=== PATIENT | female | born 1965 | race Caucasian/White ===

== ENCOUNTER 2016-10-26 17:43 | Observation (INO) | payer BC ==
[2016-10-26] MEDS ORDERED: ASPIRIN 81 MG CHEW PO STA (18:02)
[2016-10-26] MEDS: NITROGLYCERIN SL TABS 0.4 MG TAB SUBLINGUAL STA ×2 (18:09→18:15)
--- NOTE | 2016-10-26 18:13 | ED ---
Chest Pain HPI - General Chief Complaint: Chest Pain Stated Complaint: CHEST PAIN, BETWEEN SHOULDER BLADES Time Seen by Provider: 10/26/16 17:58 Source: patient, RN notes reviewed Mode of arrival: wheelchair Limitations: no limitations - History of Present Illness Initial Comments: 51-year-old female presents emergency Department with chief complaint of chest pain. Patient states started approximately 24 hours ago. Patient states that she has centralize chest pressure and states that she has pain in between her shoulder blades. Patient states nothing seems to make it feel better or worse at this time. She states it does wax and wane. Patient admits to some intermittent shortness of breath associated with it. Patient denies any pleuritic chest pain or orthopnea. Patient states that she has no known cardiac issues in denies hypertension, hyperlipidemia, diabetes, smoking history she states she does have family history of CVAs and states that her sister takes multiple medications for heart conditions. Patient denies any headache or dizziness. Patient denies any nausea vomiting, diaphoretic episodes. Patient states she believes she has stress test many years ago but is uncertain. - Related Data Home Medications Medication Instructions Recorded Confirmed Albuterol Inhaler [Ventolin Hfa 2 puff INHALATION RT-Q6H PRN 10/26/16 10/26/16 Inhaler] Allergies Allergy/AdvReac Type Severity Reaction Status Date / Time No Known Allergies Allergy Verified 10/26/16 18:32 Review of Systems ROS Statement: Those systems with pertinent positive or pertinent negative responses have been documented in the HPI. ROS Other: All systems not noted in ROS Statement are negative. EKG Findings - EKG Comments: EKG Findings:: EKG performed at 18:17 normal sinus rhythm with left bundle branch block rate of 78. 182 QRS duration 138, QT/QTC 434/494 Past Medical History Past Medical History: Asthma History of Any Multi-Drug Resistant Organisms: None Reported Past Surgical History: Cholecystectomy Past Psychological History: No Psychological Hx Reported Smoking Status: Never smoker Past Alcohol Use History: Occasional Past Drug Use History: None Reported General Exam Limitations: no limitations General appearance: alert, in no apparent distress Head exam: Present: atraumatic, normocephalic, normal inspection Respiratory exam: Present: normal lung sounds bilaterally. Absent: respiratory distress, wheezes, rales, rhonchi, stridor Cardiovascular Exam: Present: regular rate, normal rhythm, normal heart sounds. Absent: systolic murmur, diastolic murmur, rubs, gallop, clicks GI/Abdominal exam: Present: soft, normal bowel sounds. Absent: distended, tenderness, guarding, rebound, rigid Neurological exam: Present: alert, oriented X3, CN II-XII intact Skin exam: Present: warm, dry, intact, normal color. Absent: rash Course Vital Signs 10/26/16 10/26/16 10/26/16 17:49 18:08 18:13 Temperature 98.4 F Pulse Rate 80 Pulse Rate [ 76 88 Final Inspector Motorcyles ] Respiratory 20 Rate Blood Pressure 170/91 Blood Pressure 156/69 160/83 [Right Arm] O2 Sat by Pulse 98 96 Oximetry 10/26/16 18:25 Temperature Pulse Rate Pulse Rate [ 76 Final Inspector Motorcyles ] Respiratory Rate Blood Pressure Blood Pressure 157/92 [Right Arm] O2 Sat by Pulse 97 Oximetry Chest Pain MDM - MDM 51-year-old female presented for chest pain. Patient's d-dimer is negative there is no evidence of PE. Patient's chest x-ray within normals. Patient's EKG does show left bundle desiree block with no known history. Patient states that she got relief of her pain with her nitro. Patient be admitted at this time on heparin for cardiac evaluation. Disposition Clinical Impression: Unstable angina Disposition: ADMITTED IP TO THIS [facility] Condition: Stable
[2016-10-26 18:47] LABS: Basophils % (A) 0 %; CH 30.7; CHCM 35.3; Eosinophils # (A) 0.1 k/uL (0-0.7); Eosinophils % (A) 1 %; HCT 38.3 % (34.0-46.0); HDW 2.76; HGB 13.3 gm/dL (11.4-16.0); Luc % (Auto) 2; Lymphocytes # (A) 1.8 k/uL (1.0-4.8); Lymphocytes % (A) 18 %; MCH 30.3 pg (25.0-35.0); MCHC 34.7 g/dL (31.0-37.0); MCV 87.3 fL (80.0-100.0); Mean Platelet Volume 6.5; Monocytes # (A) 0.5 k/uL (0-1.0); Monocytes % (A) 5 %; Neutrophils # (A) 7.8 k/uL (1.3-7.7); Neutrophils % (A) 75 %; RBC 4.38 m/uL (3.80-5.40); WBC 10.5 k/uL (3.8-10.6); WBC (Perox) 10.74
[2016-10-26 19:06] LABS: ALT 37 U/L (9-52); AST 19 U/L (14-36); Alkaline Phosphatase 115 U/L (38-126); Anion Gap 10 mmol/L; Blood Urea Nitrogen 17 mg/dL (7-17); Carbon Dioxide 25 mmol/L (22-30); Chloride 105 mmol/L (98-107); Glucose 89 mg/dL (74-99); Non-African American GFR(MDRD) >60 (>60 ml/min/1.73 sqM); Potassium 4.5 mmol/L (3.5-5.1); Sodium 140 mmol/L (137-145); Total Bilirubin 0.5 mg/dL (0.2-1.3); Total Protein 7.2 g/dL (6.3-8.2)
[2016-10-26 19:07] LABS: Prothrombin Time 9.8 sec (9.0-12.0)
[2016-10-26 19:21] LABS: Creatine Kinase MB 1.2 ng/mL (0.0-2.4); Troponin I <0.012 ng/mL (0.000-0.034)
[2016-10-26 19:30] LABS: Creatine Kinase 166 U/L (30-135)
[2016-10-26 19:31] LABS: Partial Thromboplastin Time 21.7 sec (22.0-30.0)
--- NOTE | 2016-10-26 19:39 | XR ---
EXAMINATION TYPE: XR chest 2V DATE OF EXAM: 10/26/2016 7:01 PM COMPARISON: NONE HISTORY: Pain TECHNIQUE: Frontal and lateral views of the chest are obtained. FINDINGS: There is no focal air space opacity, pleural effusion, or pneumothorax seen. The cardiac silhouette size is within normal limits. The osseous structures are intact. IMPRESSION: No acute cardiopulmonary process.
[2016-10-26] MEDS ORDERED: NITROGLYCERIN SL TABS 0.4 MG TAB SUBLINGUAL PRN (20:08)
[2016-10-26] MEDS ORDERED: ALPRAZolam 0.25 MG TAB PO PRN (20:08)
[2016-10-26] MEDS ORDERED: HEPARIN SODIUM,PORCINE 5,000 UNIT/ML 1 ML VIAL IV ONE (20:08)
[2016-10-26] MEDS: HEPARIN SODIUM,PORCINE/D5W PMX 25,000 UNIT in DEXTROSE/WATER 1 500ML.BAG IV SCH (20:33)
[2016-10-26] MEDS ORDERED: ACETAMINOPHEN TAB 500 MG TAB PO STA (22:57)
[2016-10-27 01:13] LABS: Creatine Kinase 157 U/L (30-135)
[2016-10-27 01:24] LABS: Creatine Kinase MB 1.2 ng/mL (0.0-2.4)
[2016-10-27 01:27] LABS: Troponin I <0.012 ng/mL (0.000-0.034)
[2016-10-27 07:22] LABS: Cholesterol 121 mg/dL (<200); HDL Cholesterol 34 mg/dL (40-60); Triglycerides 135 mg/dL (<150)
[2016-10-27 07:41] LABS: Creatine Kinase 111 U/L (30-135)
[2016-10-27 07:54] LABS: Creatine Kinase MB 0.8 ng/mL (0.0-2.4); Troponin I <0.012 ng/mL (0.000-0.034)
[2016-10-27] MEDS: ASPIRIN 325 MG TAB PO SCH (09:02)
--- NOTE | 2016-10-27 09:58 | ECHOF ---
Referral Reason:Chest pain MEASUREMENTS -------- HEIGHT: 165.1 cm WEIGHT: 70.3 kg BP: 138/75 RVIDd: 2.7 cm (< 3.3) IVSd: 1.0 cm (0.6 - 1.1) LVIDd: 4.0 cm (3.9 - 5.3) LVPWd: 1.0 cm (0.6 - 1.1) IVSs: 1.4 cm LVIDs: 3.1 cm LVPWs: 1.7 cm LA Diam: 3.5 cm (2.7 - 3.8) LAESV Index (A-L): 25.52 ml/m Ao Diam: 2.1 cm (2.0 - 3.7) AV Cusp: 1.2 cm (1.5 - 2.6) LA Diam: 2.9 cm (2.7 - 3.8) MV EXCURSION: 9.870 mm (> 18.000) MV EF SLOPE: 67 mm/s (70 - 150) EPSS: 0.6 cm MV E Ankit: 1.01 m/s MV DecT: 272 ms MV A Ankit: 0.97 m/s MV E/A Ratio: 1.04 RAP: 5.00 mmHg RVSP: 17.37 mmHg FINDINGS -------- Sinus rhythm. This was a technically good study. Left ventricular wall thickness is normal. Overall left ventricular systolic function is normal with, an EF between 55 - 60 %. The right ventricle is normal in size. Normal LA size by volume 22+/-6 ml/m2. The right atrium is normal in size. The aortic valve is trileaflet and appears structurally normal. The mitral valve leaflets are mildly thickened. Mild mitral annular calcification present. Mild mitral regurgitation is present. Mild tricuspid regurgitation present. Right ventricular systolic pressure is normal at < 35 mmHg. Pulmonic valve appears structurally normal. The aortic root size is normal. Normal inferior vena cava with normal inspiratory collapse consistent with estimated right atrial pressure of 5 mmHg. There is no pericardial effusion. CONCLUSIONS -------- 1. Sinus rhythm. 2. Mild mitral annular calcification present. 3. Mild mitral regurgitation is present. 4. Mild tricuspid regurgitation present. 5. Right ventricular systolic pressure is normal at < 35 mmHg. 6. Pulmonic valve appears structurally normal. 7. The aortic root size is normal. 8. There is no pericardial effusion. 9. This was a technically good study. 10. Left ventricular wall thickness is normal. 11. Overall left ventricular systolic function is normal with, an EF between 55 - 60 %. 12. The right ventricle is normal in size. 13. Normal LA size by volume 22+/-6 ml/m2. 14. The right atrium is normal in size. 15. The aortic valve is trileaflet and appears structurally normal. 16. The mitral valve leaflets are mildly thickened. ELECTRIC SYSTEM OPERATOR: Arianne Ovalles RDCS
[2016-10-27] MEDS ORDERED: HEPARIN SODIUM,PORCINE 5,000 UNIT/ML 1 ML VIAL IV ONE (11:42)
[2016-10-27] MEDS ORDERED: ALBUTEROL NEBULIZED 2.5 MG/3 ML INHALATION PRN (16:53)
--- NOTE | 2016-10-27 17:29 | HP ---
DATE OF ADMISSION: 10/26/2016 HISTORY AND PHYSICAL EXAMINATION/DISCHARGE SUMMARY: The patient is a pleasant 51 -year-old female came in with complaints of chest pain, started ( ) in nature, chest pain is in the anterior part of the chest radiating to the bilateral shoulder blade area. The patient does not have a ( ). The patient chest pain is not associated with lightheadedness. Denied any shortness of breath associated with that. Denied any diaphoresis. Chest pain lasted for hours. ( ) 5/10 in severity. Wax and wane. Patient chest pain is nonpleuritic in nature. No ( )shortness of breath, orthopnea, PND, no shortness of breath, orthopnea or PND. The patient denied any significant cardiac issues including hypertension, hyperlipidemia, diabetes mellitus. Denied any smoking history. FAMILY HISTORY: Significant for CVA ( ) premature coronary artery disease. The patient denied any lightheadedness and the patient has history of asthma. The patient chest pain is not associated with food. REVIEW OF SYSTEMS: CONSTITUTIONAL: No fever, no malaise, no fatigue. HEENT: No recent visual problems or hearing problems. Denied any sore throat. CARDIOVASCULAR: As described in history of present illness. PULMONARY: No shortness of breath, no cough, no hemoptysis. GASTROINTESTINAL: No diarrhea, no nausea, no vomiting, no abdominal pain. Normoactive bowel sounds. NEUROLOGICAL: No headaches, no weakness, no numbness. HEMATOLOGICAL: Denies any bleeding or petechiae. GENITOURINARY: Denies any burning micturition, frequency, or urgency. MUSCULOSKELETAL/RHEUMATOLOGICAL: Denies any joint pain, swelling, or any muscle pain. ENDOCRINE: Denies any polyuria or polydipsia. The rest of the 14 point review of systems is negative. HOME MEDICATIONS: Albuterol. ALLERGIES: No known drug allergies. PAST MEDICAL HISTORY: Significant for asthma. SURGICAL HISTORY: Cholecystectomy. SOCIAL HISTORY: Denied any smoking, alcohol abuse or any drug abuse. Family history as mentioned in the HPI. PHYSICAL EXAMINATION: VITAL SIGNS: Temperature 98.4, pulse 70, respiratory rate of 20, blood pressure 156/69, saturating at 93% on room air. GENERAL: The patient is alert and oriented x3, not in any acute distress. Well developed, well nourished. HEENT: Pupils are round and equally reacting to light. EOMI. No scleral icterus. No conjunctival pallor. Normocephalic, atraumatic. No pharyngeal erythema. No thyromegaly. CARDIOVASCULAR: S1 and S2 present. No murmurs, rubs, or gallops. PULMONARY: Chest is clear to auscultation, no wheezing or crackles. ABDOMEN: Soft, nontender, nondistended, normoactive bowel sounds. No palpable organomegaly. MUSCULOSKELETAL: No joint swelling or deformity. EXTREMITIES: No cyanosis, clubbing, or pedal edema. NEUROLOGICAL: Gross neurological examination did not reveal any focal deficits. SKIN: No rashes. LABORATORY DATA : CBC, CMP, essentially within normal limits. Chest x-ray did not show any acute abnormality. Patient d-dimer is negative. Two sets of Troponins are negative. EKG showed left bundle branch block. Unsure if this is new or old. Although the patient has an echocardiogram, which is essentially within normal limits without any wall motion abnormality. We will try and get EKG from Dr. Mitchell's office, if there is any previous EKG's which is showing left bundle branch block. Although the patient does not have any troponin elevation. ASSESSMENT AND PLAN: 1. Chest pain appears to be atypical in nature, unsure of the exact etiology of chest. The patient is admitted to the hospital. We will rule out acute unstable angina. Rule out unstable angina or any other acute coronary syndrome. Cardiology was consulted. EKG as mentioned above with normal echocardiogram findings. I will leave further management either stress test or any further intervention as per cardiology. If cardiology clears her then patient will be discharged today. 2. Asthma without any acute exacerbation. 3. Left bundle branch block on the EKG. Management as mentioned above. New onset left bundle branch block is considered as acute myocardial infarction. This dictation is both H&P and discharge summary. If cardiology clears, the patient will be discharged. Discharge with probable outpatient stress test. Patient does not have any risk factors of coronary artery disease.
[2016-10-28] MEDS: HEPARIN SODIUM,PORCINE/D5W PMX 25,000 UNIT in DEXTROSE/WATER 1 500ML.BAG IV SCH ×2 (00:42→02:18)
[2016-10-28 08:05] VITALS: RESP 16
[2016-10-28 12:00] VITALS: BP 147/77; PULSE 75; TEMP 98.2
[2016-10-28] MEDS ORDERED: LOSARTAN 25 MG TAB PO SCH (12:30)
[2016-10-28] MEDS: ASPIRIN 325 MG TAB PO SCH (12:39)
--- NOTE | 2016-10-28 13:23 | CONS ---
DATE OF CONSULTATION: This is a 51-year-old female who started experiencing chest discomfort on and this pain went through to the back. It lasted for about an hour and then it subsided. 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 The pain was continuous and relentless and therefore she came to the hospital on Sunday evening around 6:00. Her first 12-lead ECG shows sinus rhythm with a left bundle branch block morphology, a QRS width of 136 ms. This is a new finding from 2009. I have a stress test from 2009, which states that her QRS was 80 ms at that time. Now it is 136 ms. Since then she has had 2 sets of cardiac enzymes, which have been normal. Hemoglobin is normal. Electrolytes are normal. Kidney function is normal. Lipid panel is as follows: Triglycerides 135, total cholesterol 121, LDL 60 HDL 34. REVIEW OF SYSTEMS: No fever, chills or rigors. No cough or expectoration. No nausea, vomiting, or diarrhea. No hematuria or dysuria. No strokes or seizures. No skin lesions or musculoskeletal complaints. ALLERGIES: No known drug allergies. MEDICATIONS: None. PAST HISTORY: She has a history of elevated blood pressure. Three months ago she went to Dr. Mitchell's office, her blood pressure was elevated and it has been elevated in the last couple days as well as on admission and throughout this hospitalization. No diabetes. No family history of premature coronary disease, but a family history of hypertension, heart failure and strokes. Her mother had all 3. Her sister has hypertension and is on medical treatment for this. On examination, blood pressure is 147/77 mmHg, pulse rate is in the 70s. She is afebrile at 98.2 Fahrenheit. Head and neck examination is normal. Heart sounds are normal S1, normal S2. Breath sounds are normal. No rhonchi. No crackles. Abdomen is soft, nontender. Extremities are warm. No edema. IMPRESSION: 1. Hypertension. 2. Normal potassium. 3. Left bundle branch block with a QRS width of 136 ms. 4. Patient admitted with recurrent chest discomfort. No evidence for acute myocardial infarction. SUGGEST: Hypertension management. Once blood pressure is controlled, stress testing. Since she has a left bundle branch block at baseline, I would order an exercise Cardiolite stress test. Please noted that 2-D echo shows normal LV size and systolic function. PLAN: Outpatient exercise Cardiolite stress test for evaluation of recurrent chest discomfort, hypertension, left bundle branch block on 12-lead ECG, (abnormal ECG at baseline). I will see her thereafter.
--- NOTE | 2016-10-29 10:45 | DS ---
DATE OF ADMISSION: 10/26/2016 DATE OF DISCHARGE: 10/28/2016 HOSPITAL COURSE: Ms. Najera is a 51-year-old female with a past medical history of asthma, coming into the hospital with a chief complaint of chest pain. Patient has chest pain which is radiating to her bilateral shoulder plate but it was not associated with any difficulty in breathing or lightheadedness or dizziness. But there is family history of premature coronary artery disease, so the patient was started on heparin drip and cardiology has been consulted. Patient did get an echocardiogram that was within normal limits. Cardiology has seen her and advised that she get a stress test as outpatient which has been scheduled. The patient is being discharged home in stable condition. Consults obtained: Cardiology. Procedures done: Echocardiogram showing ejection fraction 55 to 60%. DISCHARGE DIAGNOSIS(ES): 1. Atypical chest pain. 2. Asthma. 3. Left bundle branch block on EKG. Patient's discharge medications: 1. Albuterol 2 puffs q.6 hours p.r.n. for shortness of breath. 2. Cozaar 25 mg p.o. daily. FOLLOW-UP: Patient is advised to get a stress test that has already been scheduled for Sunday. Diet: Cardiac diet and activity as tolerated. The patient is advised to follow up with her primary care physician within one weeks' of time. Patient is being discharged home in stable condition with her family members.
== END 2016-10-28 13:48 | disposition home or self-care (01) ==
LOC: EC 17:43 → 3OBS 20:08
PROVIDERS: ADMIT Internal Medicine; ATTEND Internal Medicine
DX: R07.89 Other chest pain (principal); J45.909 Unspecified asthma, uncomplicated; I44.7 Left bundle-branch block, unspecified; I10 Essential (primary) hypertension; Z82.49 Family history of ischemic heart disease and other diseases of the circulatory system; Z82.3 Family history of stroke
CPT/HCPCS: 99285 ×2; 96365 ×2; 96366 ×18; 96376 ×4; 36415; 93005 ×2; 93306; 85379; 80061; 80053; 82550 ×2; 82553 ×2; 83735; 84484 ×2; 85025; 85610; 85730 ×3; 71020; G0378 ×3; J1644 ×4

== ENCOUNTER 2019-02-26 17:20 | Emergency (ER) | payer BC, OTHER ==
[2019-02-26 17:29] VITALS: RESP 16; TEMP 97
[2019-02-26] MEDS ORDERED: IBUPROFEN 600 MG TAB PO STA (20:16)
--- NOTE | 2019-02-26 20:21 | ED ---
General Adult HPI - General Chief complaint: Extremity Injury, Lower Stated complaint: RT LEG INJURY Time Seen by Provider: 02/26/19 19:50 Source: patient, RN notes reviewed Mode of arrival: ambulatory Limitations: no limitations - History of Present Illness Initial comments: 53-year-old female presents to the emergency department for [facility] leg pain. Patient states that earlier today she was walking through her house when she tripped over an object on the floor and injured her right ankle and posterior right lower leg pain. She states the pain is mostly in the posterior right ankle that radiates up into the right calf. Patient denies hyperextending or dislocating her knee. Denies any significant knee pain. Denies hitting her head or any other injuries. Denies any hip or back pain.Patient has no other complaints at this time including shortness of breath, chest pain, abdominal pain, nausea or vomiting, headache, or visual changes. - Related Data Home Medications Medication Instructions Recorded Confirmed Albuterol Inhaler [Ventolin Hfa 2 puff INHALATION RT-Q6H PRN 10/26/16 10/26/16 Inhaler] Losartan [Cozaar] 25 mg PO DAILY 10/28/16 10/28/16 Allergies Allergy/AdvReac Type Severity Reaction Status Date / Time No Known Allergies Allergy Verified 02/26/19 17:29 Review of Systems ROS Statement: Those systems with pertinent positive or pertinent negative responses have been documented in the HPI. ROS Other: All systems not noted in ROS Statement are negative. Past Medical History Past Medical History: Asthma, Hypertension History of Any Multi-Drug Resistant Organisms: None Reported Past Surgical History: Cholecystectomy, Orthopedic Surgery Additional Past Surgical History / Comment(s): Left arm fracture with surgical repair, colonoscopy-normal Past Anesthesia/Blood Transfusion Reactions: No Reported Reaction Additional Past Anesthesia/Blood Transfusion Reaction / Comment(s): Pt states she thinks she received blood in the past. Past Psychological History: No Psychological Hx Reported Smoking Status: Never smoker Past Alcohol Use History: None Reported Past Drug Use History: None Reported - Past Family History Father Family Medical History: Dementia, Renal Disease Mother Family Medical History: Renal Disease Additional Family Medical History / Comment(s): Mother had "heart problems". She at the age of 62 yrs. General Exam Limitations: no limitations General appearance: alert, in no apparent distress Head exam: Present: atraumatic, normocephalic, normal inspection Eye exam: Present: normal appearance. Absent: PERRL, EOMI, scleral icterus, conjunctival injection ENT exam: Present: normal exam, mucous membranes moist Neck exam: Present: normal inspection, full ROM. Absent: tenderness, meningismus, lymphadenopathy Respiratory exam: Present: normal lung sounds bilaterally. Absent: respiratory distress, wheezes, rales, rhonchi, stridor Cardiovascular Exam: Present: regular rate, normal rhythm, normal heart sounds. Absent: systolic murmur, diastolic murmur, rubs, gallop, clicks Extremities exam: Present: normal inspection, tenderness (Mild tenderness noted to the right posterior foot and ankle along the heel. Normal Palma test.), normal capillary refill (Refill less than 2 seconds, DP pulse 2+), calf tenderness (Minimal lower calf tenderness, no erythema or edema. No increased warmth.). Absent: full ROM (Patient has some limited dorsiflexion of the right foot but is able to dorsiflex about 10), pedal edema, joint swelling Back exam: Absent: vertebral tenderness Neurological exam: Present: alert, oriented X3, CN II-XII intact Psychiatric exam: Present: normal affect, normal mood Course Vital Signs 02/26/19 17:26 Temperature 97.0 F L Pulse Rate 69 Respiratory 16 Rate Blood Pressure 121/76 O2 Sat by Pulse 98 Oximetry Medical Decision Making - Medical Decision Making 53-year-old female presents for right leg pain. This happened after she tripped over an object on the floor. Patient states it is her posterior ankle as well as distal right calf. Patient does have intact Palma's sign. DP pulse 2+, neurovascularly intact. She is able to ambulate. X-ray shows no fracture of the right foot. X-ray tib-fib shows no acute process. Discussed muscle strain versus ankle sprain. Patient will be put in a stirrup splint. Will follow up with orthopedics. Will return here if she has any worsening symptoms. Disposition Clinical Impression: Ankle injury Disposition: HOME SELF-CARE Condition: Good Instructions (If sedation given, give patient instructions): Ankle Sprain (ED) Additional Instructions: Please follow up with primary care and orthopedics in 1-2 days. Take Motrin and Tylenol for pain. Use crutches as necessary. Please return here to the emergency department if you have any worsening symptoms. Is patient prescribed a controlled substance at d/c from ED?: No Referrals: Beverley Mitchell MD [Primary Care Provider] - 1-2 days Jesu House MD [STAFF PHYSICIAN] - 1-2 days Time of Disposition: 21:45
--- NOTE | 2019-02-26 21:29 | XR ---
PROCEDURE: XR tibia fibula RT - 2V DATE AND TIME: 02/26/2019 8:33 PM CLINICAL INDICATION: PHH; Pain TECHNIQUE: Department protocol COMPARISON: None FINDINGS: There is no fracture or malalignment. The soft tissues are unremarkable. IMPRESSION: NO ACUTE PROCESS.
--- NOTE | 2019-02-26 21:31 | XR ---
PROCEDURE: XR foot complete RT - 3V DATE AND TIME: 02/26/2019 8:34 PM CLINICAL INDICATION: PHH; Pain TECHNIQUE: Department protocol COMPARISON: None FINDINGS: There is no fracture or malalignment. The soft tissues are unremarkable. IMPRESSION: NO ACUTE PROCESS.
[2019-02-26 21:52] VITALS: BP 117/69; PULSE 67
== END 2019-02-26 21:55 | disposition home or self-care (01) ==
LOC: EC 17:20
DX: S99.911A Unspecified injury of right ankle, initial encounter (principal); M79.661 Pain in right lower leg; J45.909 Unspecified asthma, uncomplicated; I10 Essential (primary) hypertension; Z87.81 Personal history of (healed) traumatic fracture; Z90.49 Acquired absence of other specified parts of digestive tract; Z98.890 Other specified postprocedural states; Z79.899 Other long term (current) drug therapy; W01.0XXA Fall on same level from slipping, tripping and stumbling without subsequent striking against object, initial encounter; Y92.69 Other specified industrial and construction area as the place of occurrence of the external cause; Y99.0 Civilian activity done for income or pay; Y93.01 Activity, walking, marching and hiking
CPT/HCPCS: 99283

== ENCOUNTER → 2019-03-19 | Outpatient (CLI) | payer OTHER ==
--- NOTE | 2019-03-19 09:40 | XR ---
EXAMINATION TYPE: XR ankle complete RT DATE OF EXAM: 03/19/2019 COMPARISON: NONE HISTORY: 53-year-old female sprain of the spinous ligament of right ankle, trip and fall injury with pain TECHNIQUE: 3 views FINDINGS: Ankle mortise is congruent with preservation of the distal tibiofibular overlap. Talar dome is intact . Subtalar joint appears aligned. A small plantar calcaneal spur. Small delineation to the Achilles t endon. IMPRESSION: No acute osseous abnormality seen.
== END | disposition home or self-care (01) ==
LOC: RADXRMAIN 09:06
PROVIDERS: ATTEND Emergency Medicine
DX: S93.401D Sprain of unspecified ligament of right ankle, subsequent encounter (principal)

== ENCOUNTER → 2019-04-22 | Outpatient (CLI) | payer BC ==
--- NOTE | 2019-04-22 12:49 | XR ---
KUB HISTORY: N 20.1, left ureteral stone Frontal KUB and 2 images No comparisons Surgical clips are present in the right upper and lower quadrant. No evident pneumoperitoneum or erwin l obstruction. Bone mineralization is maintained. Question 2 to 3 mm calcifications overlying the kid neys. Overlying bowel gas may obscure detail. IMPRESSION: Possible nephrolithiasis.
== END | disposition home or self-care (01) ==
LOC: RADXRMAIN 08:47
PROVIDERS: ATTEND Urology
DX: N20.1 Calculus of ureter (principal)
CPT/HCPCS: 74018

== ENCOUNTER → 2019-05-15 | Outpatient (CLI) | payer BC ==
--- NOTE | 2019-05-16 11:35 | MM ---
Reason for exam: screening (asymptomatic). Last mammogram was performed 13 years ago. History: Patient is postmenopausal. Family history of breast cancer in maternal cousin at age 30. Took hormonal contraceptives for 5 years beginning at age 17. Took unspecified hormones for 3 years beginning at age 27. Physical Findings: A clinical breast exam by your physician is recommended on an annual basis and results should be correlated with mammographic findings. MG Screening Mammo w CAD Bilateral CC and MLO view(s) were taken. Prior study comparison: May 04, 2006, CAD bilateral diagnostic mammogram. May 18, 2004, bilateral screening mammogram. The breast tissue is heterogeneously dense. This may lower the sensitivity of mammography. Left biopsy marker present. These results were verbally communicated with the patient and result sheet given to the patient on 05/15/19. ASSESSMENT: Negative, BI-RAD 1 RECOMMENDATION: Routine screening mammogram of both breasts in 1 year.
== END | disposition home or self-care (01) ==
LOC: RADMAMWWP 12:34
PROVIDERS: ATTEND Obstetrics & Gynecology
DX: Z12.31 Encounter for screening mammogram for malignant neoplasm of breast (principal); Z80.3 Family history of malignant neoplasm of breast
CPT/HCPCS: 77067

== ENCOUNTER → 2021-09-01 | Outpatient (CLI) | payer BC, OTHER ==
--- NOTE | 2021-09-02 09:24 | MM ---
Reason for exam: clinical finding. Last mammogram was performed 2 years and 4 months ago. History: Patient is postmenopausal. Family history of breast cancer in maternal cousin at age 30. Benign excisional biopsy of the left breast, 2010. Took hormonal contraceptives for 5 years beginning at age 17. Took unspecified hormones for 3 years beginning at age 27. Physical Findings: Nurse Summary: 0.5 x 1cm nodule in the right breast at 12 o'clock (nurse ts). MG 3D Diag Mammo W/Cad GINGER Bilateral CC and MLO view(s) were taken. Prior study comparison: May 15, 2019, bilateral MG screening mammo w CAD. The breast tissue is heterogeneously dense. This may lower the sensitivity of mammography. Previous mammotome biopsy in the left breast. There is no discrete abnormality. No significant new findings when compared with previous films. These results were verbally communicated with the patient and result sheet given to the patient on 09/01/21 ASSESSMENT: Incomplete: need additional imaging evaluation, BI-RAD 0 RECOMMENDATION: Ultrasound of the right breast.
--- NOTE | 2021-09-02 09:26 | USB ---
Reason for exam: additional evaluation requested from abnormal screening. History: Patient is postmenopausal. Family history of breast cancer in maternal cousin at age 30. Benign excisional biopsy of the left breast, 2010. Took hormonal contraceptives for 5 years beginning at age 17. Took unspecified hormones for 3 years beginning at age 27. US Breast RT Right complete breast ultrasound includes all four quadrants, the retroareolar region and axilla. Finding demonstrates no cystic or solid lesion seen. These results were verbally communicated with the patient and result sheet given to the patient on 09/01/21. ASSESSMENT: Negative, BI-RAD 1 RECOMMENDATION: Routine screening mammogram of both breasts in 1 year. Manage patient on a clinical basis.
== END | disposition home or self-care (01) ==
LOC: RADMAMWWP 14:23
PROVIDERS: ATTEND Obstetrics & Gynecology
DX: N64.4 Mastodynia (principal); R92.8 Other abnormal and inconclusive findings on diagnostic imaging of breast
CPT/HCPCS: 77062; 77066

== ENCOUNTER → 2024-04-30 | Outpatient (CLI) | payer BC, OTHER ==
--- NOTE | 2024-05-01 09:26 | MM ---
Reason for Exam: Screening (asymptomatic). Last mammogram was performed 2 year(s) and 7 month(s) ago. Patient History: Menarche at age 12. First Full-Term at age 29. Postmenopausal. Hormonal Contraceptives for 5 years from age 17 until age 22. Unspecified Hormone for 3 years from age 27 until age 31. 2010, Benign Excisional Biopsy on the left side. Maternal cousin had breast cancer, age 30. Risk Values: Krystyna 5 year model risk: 1.8%. NCI Lifetime model risk: 10.0%. Prior Study Comparison: 05/04/2006 Bilateral Diagnostic Mammogram, [facility]. 05/15/2019 Bilateral Screening Mammogram, [facility]. 09/01/2021 Bilateral Diagnostic Mammogram, [facility]. Tissue Density: The breasts are heterogeneously dense, which may obscure small masses. Findings: Analyzed By CAD. There is no suspicious group of microcalcifications or new suspicious mass in either breast. Overall Assessment: Benign, BI-RAD 2 Management: Screening Mammogram of both breasts in 1 year. . Patient should continue monthly self-breast exams. A clinical breast exam by your physician is recommended on an annual basis. This exam should not preclude additional follow-up of suspicious palpable abnormalities. Note on Krystyna scores and lifetime risk: 1. A Krystyna score greater than 3% is considered moderate risk. If this is the case, consider specialist referral to assess eligibility for a risk reducing agent. 2. If overall lifetime risk for the development of breast cancer is 20% or higher, the patient may qualify for future screening with alternating mammogram and breast MRI. Electronically signed and approved by: Griffin Gatica M.D. Radiologis
== END | disposition home or self-care (01) ==
LOC: RADMAMWWP 15:23
PROVIDERS: ATTEND Obstetrics & Gynecology
DX: Z12.31 Encounter for screening mammogram for malignant neoplasm of breast (principal); Z80.3 Family history of malignant neoplasm of breast; Z78.0 Asymptomatic menopausal state
CPT/HCPCS: 77063; 77067